=== PATIENT | female | born 1985 | race Caucasian/White ===

== ENCOUNTER 2020-11-28 11:32 | Outpatient (CLI) | payer OTHER, SELFPAY ==
--- NOTE | ~2020-11-28 | XR_ITS ---
EXAMINATION: XR hysterosalpingogram INDICATION: Fertility testing TECHNIQUE: Hysterosalpingogram was performed by Dr. Mónica Mccracken MD with fluoroscopic james peñaloza. I was present to obtain fluoroscopic images. Fluoroscopy exposure time was 0.2 minutes. The DAP f or this procedure was 0.83 Gycm2. FINDINGS: Garment Inspector fluoroscopic image demonstrates an unremarkable pelvis. Fluoroscopic images demonstr ate a normal appearing endometrial cavity which has been cannulated. Upon injection of contrast, bot h fallopian tubes opacify and are normal in appearance. There is free spillage bilaterally. Uterus i s without evidence of synechia. IMPRESSION: Patent fallopian tubes. Reviewed, dictated and finalized at location A. IMPRESSION: Patent fallopian tubes.
[2020-11-28 12:35] LABS: Beta HCG Quantitative < 2.39 mIU/ML
== END 2020-11-28 11:33 | disposition home or self-care (01) ==
PROVIDERS: PCP Family Medicine; Visit Provider Obstetrics & Gynecology Gynecology
DX: Z31.41 Encounter for fertility testing (principal)
CPT/HCPCS: 36415; 58340; 74740; 84702

== ENCOUNTER 2021-09-18 11:34 | Inpatient (IN) | payer OTHER, SELFPAY ==
[2021-09-18] VITALS (78 sets, daily range): BP systolic 78–135; BP diastolic 40–109; PULSE 51–116; RESP 16–20; TEMP 36.2–37.6; O2SAT 85–100; BMI 31.1
--- NOTE | 2021-09-18 11:34 | LDADM ---
This patient, Joselin Tamez, was admitted to Labor/Delivery/Recovery 106 on 09/18/21 at 11:34. Plans for labor, pain management and were discussed with patient. Patient/family oriented to hospital policies and general routines including ID bracelet, bed and alarms, visiting hours, pain management, procedures, bathroom and other care routines, personal items, smoking policy, room service/diet and guest tray routines, security routines, and visiting hours. Patient/Family are encouraged to report perceived risks to care and to ask questions if they do not understand what they are told or what they should do. See OBIX for further documentation.
[2021-09-18] MEDS: LACTATED RINGERS 1,000 ML 125 ML IV CONT ×2 (12:02→15:42)
[2021-09-18 12:21] LABS: Basophils Absolute Auto 0.1 K/mm3 (0.0-0.1); Basophils Percent Auto 0.4 % (0.2-1.2); Hematocrit 35.7 % (37.0-47.0); Immature Granulocyte Absolute 0.07 K/mm3 (0.00-0.031); Immature Granulocyte Percent A 0.6 % (0-0.5); Lymphocytes Absolute Auto 1.42 K/mm3 (0.9-3.2); Lymphocytes Percent Auto 11.4 % (18.3-44.2); Mean Corpuscular HGB Conc 33.6 g/dl (32-36); Mean Corpuscular Hemoglobin 31.2 pg (26-34); Mean Corpuscular Volume 92.7 fl (80-100); Mean Platelet Volume 10.1 fl (7.4-10.4); Monocytes Absolute Auto 0.8 K/mm3 (0.1-0.6); Monocytes Percent Auto 6.3 % (2.6-8.5); Neutrophils Absolute Auto 10.1 K/mm3 (1.3-6.7); Neutrophils Percent Auto 81.3 % (45.5-73.1); Platelet Count Result 268 k/mm3 (150-375); Red Blood Count 3.85 M/mm3 (4.2-5.4); Red Cell Distribution Width 12.9 % (11.5-14.5); White Blood Count 12.4 K/mm3 (4.5-10.0)
--- NOTE | 2021-09-18 12:30 | WPDANESEPPF ---
Anes - Initial Pre Proc Eval Procedure: labor epidural Date/Time: 09/18/21 12:30 Surgeon: Mónica Mccracken MD Pre Op Diagnosis: labor pain Pre Op Diagnosis: Labor Patient Data Age: 35 Gender: F Height: Weight: Last Vital Signs Pulse 80 09/18/21 12:28 BP 121/73 09/18/21 12:28 Pulse Ox 100 09/18/21 12:26 Allergies Allergy/AdvReac Type Severity Reaction Status Date / Time No Known Allergies Allergy Verified 09/02/21 13:33 Home Medications Medication Instructions Recorded Confirmed Type fluoxetine 40 mg capsule 40 mg PO DAILY #1 cap 12/27/20 12/27/20 Rx dextroamphetamine-amphetamine 15 15 mg PO DAILY #30 tablet 01/20/21 Rx mg tablet dextroamphetamine-amphetamine ER 15 mg PO DAILY #30 cap 01/20/21 Rx 15 mg 24hr capsule,extend release Laboratory Tests 09/18/21 09/18/21 12:10 12:10 WBC 12.4 K/mm3 H K/mm3 (4.5-10.0) RBC 3.85 M/mm3 L M/mm3 (4.2-5.4) Hgb 12.0 g/dL g/dL (12.0-15.0) Hct 35.7 % L % (37.0-47.0) MCV 92.7 fl fl (80-100) MCH 31.2 pg pg (26-34) MCHC 33.6 g/dl g/dl (32-36) RDW 12.9 % % (11.5-14.5) Plt Count 268 k/mm3 k/mm3 (150-375) MPV 10.1 fl fl (7.4-10.4) Immature Gran % (Auto) 0.6 % H % (0-0.5) Neut % (Auto) 81.3 % H % (45.5-73.1) Lymph % (Auto) 11.4 % L % (18.3-44.2) [place] % (Auto) 6.3 % % (2.6-8.5) Eos % (Auto) 0.0 % % (0-4.4) Baso % (Auto) 0.4 % % (0.2-1.2) Lymph # (Auto) 1.42 K/mm3 K/mm3 (0.9-3.2) [place] # (Auto) 0.8 K/mm3 H K/mm3 (0.1-0.6) Eos # (Auto) 0.0 K/mm3 K/mm3 (0-0.3) Baso # (Auto) 0.1 K/mm3 K/mm3 (0.0-0.1) Abs Immat Gran (auto) 0.07 K/mm3 H K/mm3 (0.00-0.031) Absolute Neuts (auto) 10.1 K/mm3 H K/mm3 (1.3-6.7) Absolute Nucleated RBC 0.0 K/mm3 K/mm3 (0.0-0.012) Nucleated RBC % 0.0 % % (0.0-0.2) RPR Pending Patient hx anesthesia problems: none Family hx anesthesia problems: none Results Review: All pre-operative results and documents have been reviewed as part of the pre-operative evaluation. [facility] Past Medical History Medical History BMI 24.0-24.9, adult Family History Family History (Updated 09/02/21 @ 13:35 by Deana Hernandez RN) Father Malignant neoplasm of prostate Obesity Mother Obesity Sibling No problems noted. Grandparent Type 2 diabetes mellitus Pacemaker Social History Social History Smoking status: Former smoker Second hand tobacco smoke exposure: Yes Alcohol intake: current Substance use: current Substance use type: marijuana Last use: stopped with Additional occupation/education comments: IT sales Gender identity (if verbalized by the patient): Female Spiritual care concerns: No Anes - Eval Final PreProcedure Day of Procedure 09/18/21 12:30 Patient weight: normal ASA classification: II Anesthesia type and monitoring: regional epidural and standard monitoring Results Review: All pre-operative results and documents have been reviewed as part of the pre-operative evaluation. Informed Consent: The patient's anesthetic plan and its attendant risks and benefits were discussed with the patient/family/POA. Questions were solicited and answers provided to the satisfaction of the patient/family/POA.
--- NOTE | 2021-09-18 12:41 | WPDOBADMIT ---
Obstetrics - Admit Note Admission Note: record reviewed. No pertinent additions to the history and/or any subsequent changes in the physical findings that are not consistent with the expected course of the were found. Additions to the history and/or subsequent changes in the physical findings follow. None. Arrived in labor with BBOW and complete. Patient requested epidural and just placed. Expectant mgmt,
[2021-09-18 14:10] LABS: Amphetamine Screen Urine Negative (Negative); Barbiturate Screen Urine Negative (Negative); Benzodiazepines Screen Urine Negative (Negative); Cannabinoid Screen Urine Negative (Negative); Cocaine Screen Urine Negative (Negative); Methadone Screen Urine Negative (Negative); Opiate Screen Urine Negative (Negative); Phencyclidine Screen Urine Negative (Negative)
[2021-09-18] MEDS: OXYTOCIN 30 UNITS/NS 500 ML 30 UNITS/500 ML BAG 999 UNITS IV CONT (16:55)
--- NOTE | 2021-09-18 17:06 | PM.OBPRVD ---
OB - Delivery Note Procedure Delivery date: 09/18/21 Procedure: with manual removal of placenta Induction method: AROM Delivery monitor: External FHT and External Uterine Route of delivery: Laceration Description: Perineal - 1st Degree and Labial (inner right) Delivery repair: vicryl (3-0) Specimen: Yes (placenta in pieces) Quantitative Blood Loss (ml): 200 Anesthesia type: Epidural Disposition: Floor Baby Date of : 09/18/21 Weeks of gestation at delivery: 39 Infant gender: Male Weight (pounds): 5 Weight (ounces): 6 presentation: vertex position: Right Occiput Anterior Placenta delivery description: Manual Removal (at fundus after about 20 min cord avulsion and no release of placenta at fundus) and Uterine Exploration Cord Vessel Description: 3 Vessels score one minute: 8 score five minutes: 9 Narrative: After placenta manually removed in 2 main pieces, uterus explored one additional time and bedside u/s done and normal smooth endometrial echo to fundus.
--- NOTE | 2021-09-18 17:10 | PM.OBDSVD ---
DS: Admitting Diagnosis Discharge Date 09/20/21 Admitting Diagnosis Labor at 39 wk DS: Discharge Diagnosis Discharge Diagnosis (1) (normal spontaneous vaginal delivery): Code(s): O80 - Encounter for full-term uncomplicated delivery Status: Acute OB - DS: Summary OB Procedures : Ultrasound OB Procedures Intrapartum: Spontaneous Vag Delivery and Uterine exploration (manual removal of placenta; bedside u/s ) OB Procedures: : None Peripartum Data Infant Delivery Method: Natural Vaginal Laceration Description: Perineal - 1st Degree and Labial complications: none Status at Discharge Functional status at discharge: independent ambulation Overall status at discharge: patient is progressing back to baseline Time Spent with Patient Time attestation: Total time spent providing and/or coordinating discharge services: DS: Data Data Completed and Pending Labs on day of discharge: Labs from last 24 hours 09/18/21 09/18/21 09/18/21 13:38 12:10 12:10 WBC RBC Hgb Hct MCV MCH MCHC RDW Plt Count MPV Immature Gran % (Auto) Neut % (Auto) Lymph % (Auto) [place] % (Auto) Eos % (Auto) Baso % (Auto) Lymph # (Auto) [place] # (Auto) Eos # (Auto) Baso # (Auto) Abs Immat Gran (auto) Absolute Neuts (auto) Absolute Nucleated RBC Nucleated RBC % Urine Opiates Screen Negative Urine Methadone Screen Negative Ur Barbiturates Screen Negative Ur Phencyclidine Scrn Negative Ur Amphetamine Screen Negative U Benzodiazepines Scrn Negative Urine Cocaine Screen Negative U Cannabinoids Screen Negative RPR Pending Blood Type A Positive Antibody Screen Negative 09/18/21 12:10 WBC 12.4 H RBC 3.85 L Hgb 12.0 Hct 35.7 L MCV 92.7 MCH 31.2 MCHC 33.6 RDW 12.9 Plt Count 268 MPV 10.1 Immature Gran % (Auto) 0.6 H Neut % (Auto) 81.3 H Lymph % (Auto) 11.4 L [place] % (Auto) 6.3 Eos % (Auto) 0.0 Baso % (Auto) 0.4 Lymph # (Auto) 1.42 [place] # (Auto) 0.8 H Eos # (Auto) 0.0 Baso # (Auto) 0.1 Abs Immat Gran (auto) 0.07 H Absolute Neuts (auto) 10.1 H Absolute Nucleated RBC 0.0 Nucleated RBC % 0.0 Urine Opiates Screen Urine Methadone Screen Ur Barbiturates Screen Ur Phencyclidine Scrn Ur Amphetamine Screen U Benzodiazepines Scrn Urine Cocaine Screen U Cannabinoids Screen RPR Blood Type Antibody Screen Discharge Plan Discharge Attending physician on discharge: Mónica Mccracken Discharging Clinician: Mónica Mccracken Anticipated Discharge Date/Time: 09/20/21 17:12 Patient Disposition: Home, Self-Care Activity: may shower and pelvic rest Diet: regular Patient Instructions: Antibiotic Form Stand Alone Forms: General Discharge Information Follow-up/Referrals: Mónica Mccracken MD [Physician] - 6 Weeks Discharge Medications: New Slynd 4 mg (28) tablet 4 mg PO DAILY 24 Days Qty: 24 RF: 5 Continued fluoxetine 40 mg capsule 40 mg PO DAILY Qty: 1 RF: 0 1 mg Tablet 1 tablet PO RF: 0 dextroamphetamine-amphetamine [Adderall] 15 mg tablet 15 mg PO DAILY Qty: 30 RF: 0 Date of admission: 09/18/21 11:34 Primary Care Provider: Isaias Braden Admitting Provider: Mónica Mccracken Attending physician on admission: Mónica Mccracken Condition: Stable
[2021-09-18] MEDS: OXYTOCIN 30 UNITS/NS 500 ML 30 UNITS/500 ML BAG 125 UNITS IV CONT (17:30)
[2021-09-18] MEDS: IBUPROFEN 600 MG TABLET PO (18:48)
[2021-09-18] MEDS: ACETAMINOPHEN 325 MG TABLET 650 MG PO (18:48)
[2021-09-18] MEDS: WITCH HAZEL 40 PADS 1 PAD TOPICAL (18:49)
[2021-09-18] MEDS: BENZOCAINE 20% AER SPR (*SP) 56 GM CAN 1 SPRAY TOPICAL (18:49)
[2021-09-19] VITALS (7 sets, daily range): BP systolic 113–141; BP diastolic 70–88; PULSE 80–95; RESP 16–18; TEMP 36.3–37; O2SAT 98–100
[2021-09-19 05:48] LABS: Rapid Plasma Reagin Non-Reactive (NonReactive)
[2021-09-19 06:04] LABS: Hemoglobin 8.7 g/dL (12.0-15.0)
[2021-09-19] MEDS: DOCUSATE SODIUM 100 MG CAPSULE PO ×2 (10:08→17:38)
[2021-09-19] MEDS: POLYSACCHARIDE IRON COMPLEX 150 MG CAPSULE PO ×2 (10:08→17:38)
[2021-09-19] MEDS: MULTIVIT/MIN/PREN/FOL AC/IRON TABLET 1 TAB PO (10:08)
[2021-09-19] MEDS: IBUPROFEN 600 MG TABLET PO ×2 (10:09→17:38)
--- NOTE | 2021-09-19 13:54 | PM.OBPNVD ---
OB - PN: Subj Subjective Date/time seen: 09/19/21 13:54 Patient comments: no complaints and pain well controlled baby status: doing well OB - PN: Obj Data Labs CBC & Chem 7: 09/19/21 04:15 Labs: Laboratory Results - last 24 hr 09/18/21 09/18/21 09/19/21 12:10 13:38 04:15 Hgb 8.7 L D Hct 26.0 L Urine Opiates Screen Negative Urine Methadone Screen Negative Ur Barbiturates Screen Negative Ur Phencyclidine Scrn Negative Ur Amphetamine Screen Negative U Benzodiazepines Scrn Negative Urine Cocaine Screen Negative U Cannabinoids Screen Negative RPR Non-reactive OB - PN A/P Plan day: 1 Plan: routine care Time Spent With Patient Time: Total time spent is greater than 50% in coordination of care (as documented) at patient's floor/unit and/or counseling patient: Exam : Bimanual exam- vagina & uterus: other (Uterus firm, nt @U)
--- NOTE | 2021-09-19 14:05 | PC.NURSE ---
1000 Breast feeding note; came to bedside, mother states had nursed 10-15 minutes, but was off and on the breast in those minutes; mother has smaller breasts, minimal glandular tissue, and wider mediastinal space, greater than 1 1/2in. a result of IUI, and no meds required to sustain the . Reviewed s/o effective breast feeding with baby latching deep on the breast, maintaining latch and demonstrating rhythmic sucking and contented after feedings. After discussion with parents they feel baby has not latched effecitively since . Mother has marked bruising above each nipple, L side more. Skin is intact. discussed nipple care using breast milk, and air drying, lanolin, and warm tea bags. Baby showing hunger cues, not satisfied. Several attempts made to get to latch to feed in cross cradle, then football position. Nipple shield used. Mother shown how to place the shield correctly. Baby unable to latch with shield and maintain; suck was disorganized. Reviewed cleaning of shield. Parents agreed to start feeding plan of attempt breast, pump and bottle feed. They were shown paced bottle feeding. Nurse initiated the feeding, and FOB completed the feeding; Baby demonstrated good suck/swallow pattern, and tolerated feeding, and also content after the feeding. Reviewed q3 hour feeding schedule, keeping infant at about 15cc per bottle feeding while in the hospital. Mother set up with breast pump; 24mm flanges used. Mother reported comfortable pumping. Stimulation/expression cycle chosen for pumping. Parents shown mother-baby guide, and breast feeding pages flagged for them to review and for home reference. Encouraged them to reach out for support once out of the hospital, called the office wednesday for possible out-pt visit, and if any questions or concerns arise. Parents very attentive to all information shared and they voiced understanding.
[2021-09-20 08:59] VITALS: BP 107/65; PULSE 78; RESP 18; TEMP 36.2
[2021-09-20] MEDS: FLUoxetine HCL 20 MG CAPSULE 40 MG PO (09:26)
[2021-09-20] MEDS: DOCUSATE SODIUM 100 MG CAPSULE PO (09:26)
[2021-09-20] MEDS: MULTIVIT/MIN/PREN/FOL AC/IRON TABLET 1 TAB PO (09:26)
[2021-09-20] MEDS: POLYSACCHARIDE IRON COMPLEX 150 MG CAPSULE PO (09:26)
[2021-09-20] MEDS: IBUPROFEN 600 MG TABLET PO (09:27)
--- NOTE | 2021-09-20 12:06 | PM.OBPNVD ---
OB - PN: Subj Subjective Date/time seen: 09/20/21 12:06 Patient comments: no complaints and pain well controlled baby status: doing well OB - PN: Obj Data Labs CBC & Chem 7: 09/19/21 04:15 OB - PN A/P Plan day: 1 Plan: routine care, discharge home, follow up 6 weeks and other (plan oc's-Rx Slynd) Time Spent With Patient Time: Total time spent is greater than 50% in coordination of care (as documented) at patient's floor/unit and/or counseling patient: Exam : Bimanual exam- vagina & uterus: other (Uterus firm, nt @U)
[2021-09-22 09:39] VITALS: BP 136/78; PULSE 80; RESP 20; TEMP 37.2; O2SAT 100
== END 2021-09-20 14:45 | disposition home or self-care (01) | DRG 807 ==
LOC: ANHLDR 17:12 → ANHOB2 21:08
PROVIDERS: Admitting Provider Obstetrics & Gynecology Gynecology; PCP Family Medicine; Visit Provider Obstetrics & Gynecology Gynecology
DX: O69.89X0 Labor and delivery complicated by other cord complications, not applicable or unspecified (principal); Z37.0 Single live birth; Z3A.38 38 weeks gestation of pregnancy; O36.8330 Maternal care for abnormalities of the fetal heart rate or rhythm, third trimester, not applicable or unspecified; O70.0 First degree perineal laceration during delivery
CPT/HCPCS: 36415; 80307; 85014; 85018; 85025; 86592; 86850; 86900; 86901; 88307; A9270; J2590; J7120